=== PATIENT | female | born 1980 | race Caucasian/White ===

== ENCOUNTER → 2018-01-27 | Outpatient (CLI) | payer OTHER ==
[2018-01-27 09:19] LABS: Basophils % (A) 1 %; Eosinophils # (A) 0.2 k/uL (0-0.7); Eosinophils % (A) 3 %; HCT 44.2 % (34.0-46.0); HGB 14.5 gm/dL (11.4-16.0); Lymphocytes # (A) 1.4 k/uL (1.0-4.8); Lymphocytes % (A) 26 %; MCH 28.2 pg (25.0-35.0); MCHC 32.9 g/dL (31.0-37.0); MCV 85.7 fL (80.0-100.0); Mean Platelet Volume 7.8; Monocytes # (A) 0.3 k/uL (0-1.0); Monocytes % (A) 6 %; Neutrophils # (A) 3.5 k/uL (1.3-7.7); Neutrophils % (A) 63 %; Platelet Count 291 k/uL (150-450); RBC 5.16 m/uL (3.80-5.40); RDW 13.2 % (11.5-15.5); WBC 5.6 k/uL (3.8-10.6)
[2018-01-27 09:33] LABS: Anion Gap 11 mmol/L; Blood Urea Nitrogen 18 mg/dL (7-17); Carbon Dioxide 28 mmol/L (22-30); Chloride 103 mmol/L (98-107); Glucose 103 mg/dL (74-99); Potassium 4.5 mmol/L (3.5-5.1); Sodium 142 mmol/L (137-145)
== END | disposition home or self-care (01) ==
LOC: LABPAT 08:30
PROVIDERS: ATTEND Obstetrics & Gynecology Obstetrics
DX: Z01.818 Encounter for other preprocedural examination (principal); Z01.812 Encounter for preprocedural laboratory examination; I10 Essential (primary) hypertension; D25.9 Leiomyoma of uterus, unspecified; N92.0 Excessive and frequent menstruation with regular cycle
CPT/HCPCS: 36415; 80051; 82565; 82947; 84520; 85025; 87086; 93005

== ENCOUNTER 2018-02-06 05:41 | Day surgery (SDC) | payer OTHER ==
--- NOTE | 2018-02-05 09:17 | P.HPOB ---
History of Present Illness H&P Date: 02/05/18 Chief Complaint: menorrhagia, uterine fibroid This is a 37 yo , c/o heavy menstrual bleeding. menses are regular q month with a heavy flow and clots. she also notes moderate dysmenorrhea. she had an ultrasound done revealing large uterine fibroid, nml ovaries b/l. total uterine size is normal at 8cm. she desires definitive treatment with hysterectomy as she is odne with childbearing. given the size of shaila fibroid she woudl likely fail an EA. Review of Systems Constitutional: Reports fatigue Genitourinary: Reports dysmenorrhea, Reports menorrhagia Past Medical History Past Medical History: GERD/Reflux, Hyperlipidemia, Hypertension, Thyroid Disorder Additional Past Medical History / Comment(s): CURRENT: FIBROIDS, HEAVY MENSTURAL FLOW. LOWER PAIN History of Any Multi-Drug Resistant Organisms: None Reported Past Surgical History: Cholecystectomy Past Anesthesia/Blood Transfusion Reactions: No Reported Reaction, Motion Sickness Past Psychological History: No Psychological Hx Reported Smoking Status: Former smoker Past Alcohol Use History: Rare Additional Past Alcohol Use History / Comment(s): 2011 QUIT, SMOKED 10 YRS, 1- 1.5PPD Past Drug Use History: None Reported - Past Family History Sister(s) Family Medical History: CVA/TIA Mother Family Medical History: Cancer Medications and Allergies Home Medications Medication Instructions Recorded Confirmed Type Atorvastatin [Lipitor] 10 mg PO HS 01/29/18 01/29/18 History Levothyroxine Sodium [Synthroid] 50 mcg PO QAM 01/29/18 01/29/18 History Losartan [Cozaar] 50 mg PO HS 01/29/18 01/29/18 History Ranitidine HCl 150 mg PO HS 01/29/18 01/29/18 History Allergies Allergy/AdvReac Type Severity Reaction Status Date / Time bupropion [From Zyban] Allergy Rash/Hives Verified 01/29/18 10:26 Exam Osteopathic Statement: *. No significant issues noted on an osteopathic structural exam other than those noted in the History and Physical/Consult. - OBG Physical Exam Abdomen: bowel sounds normal Vulva: both: normal Vagina: normal without lesion Cervix: normal without lesion Uterus: irregular contour Uterus: normal size Assessment and Plan (1) Menorrhagia Status: Acute Code(s): N92.0 - EXCESSIVE AND FREQUENT MENSTRUATION WITH REGULAR CYCLE SNOMED Code(s): 691358441 (2) Uterine fibroid Status: Acute Code(s): D25.9 - LEIOMYOMA OF UTERUS, UNSPECIFIED SNOMED Code( s): 38065421 Plan: plan RAVH/DC, procedure reviewed with pt and questions answered. risks reviewed with pt including but not limited to infection bleeding damage to bladder bowel or ureteric injury. informed consent is obtained. Time with Patient: Less than 30
[~2018-02-06 05:41] MED LIST: DEXAMETHASONE SOD PHOSPHATE 10 MG/ML 1 ML VIAL IV ONE; MIDAZOLAM 2 MG/2 ML VIAL IV PRN; MORPHINE SULFATE 4 MG/ML SYRINGE IV PRN; SCOPOLAMINE 1.5MG/72HR PATCH TRANSDERM ONE
[2018-02-06] MEDS: LACTATED RINGERS 1,000 ML IV SCH ×5 (06:47→19:49)
[2018-02-06] MEDS ORDERED: LIDOCAINE 1% 20 ML VIAL (10MG/ML) FOR IV START INTRADERMA ONE ×2 (06:48→06:49)
[2018-02-06] MEDS: ONDANSETRON 4 MG/2 ML VIAL IVP ONE ×2 (06:56→19:48)
[2018-02-06] MEDS ORDERED: BUPIVACAINE (PF) 0.25% 30 ML VIAL SQ ONE ×2 (07:23→10:49)
[2018-02-06] MEDS ORDERED: NEOSTIGMINE 1 MG/ML 10 ML VIAL ONE (07:35)
[2018-02-06] MEDS ORDERED: ROCURONIUM BROMIDE 10 MG/ML 10 ML VIAL IV ONE (07:35)
[2018-02-06] MEDS ORDERED: GLYCOPYRROLATE 0.2 MG/ML 2 ML VIAL ONE (07:35)
[2018-02-06] MEDS ORDERED: ACETAMINOPHEN IV (For NPO) 1,000 MG/100 ML VIAL ONE (07:35)
[2018-02-06] MEDS ORDERED: MIDAZOLAM 2 MG/2 ML VIAL ONE (07:35)
[2018-02-06] MEDS ORDERED: PROPOFOL 10 MG/ML 20 ML VIAL IV ONE (07:35)
[2018-02-06] MEDS ORDERED: LIDOCAINE 1% INJ 10MG/ML (20 ML MDV) ONE (07:35)
[2018-02-06] MEDS ORDERED: fentaNYL (PF) 50 MCG/ML 2 ML AMP ONE (07:35)
[2018-02-06] MEDS ORDERED: SUCCINYLCHOLINE CHLORIDE 100 MG/5 ML SYR IV ONE (07:35)
[2018-02-06] MEDS ORDERED: Acetaminophen-Codeine 300-30mg TAB PO PRN ×2 (07:39)
[2018-02-06] MEDS ORDERED: IBUPROFEN 600 MG TAB PO PRN (07:39)
[2018-02-06] MEDS ORDERED: IBUPROFEN IV 800 MG in SODIUM CHLORIDE 0.9% 250 ML IV ONE (07:42)
--- NOTE | 2018-02-06 11:01 | P.OP ---
Date of Procedure: 02/06/18 Preoperative Diagnosis: Uterine fibroids, menorrhagia Postoperative Diagnosis: same Procedure(s) Performed: Robotic cyst vaginal hysterectomy, diagnostic cystoscopy Anesthesia: YESENIAA Surgeon: Camille Barkley Blockers Skiver #1: Richie Verduzco Estimated Blood Loss (ml): 50 IV fluids (ml): 1,700 Urine output (ml): 150 Pathology: other (Uterus, cervix) Condition: stable Disposition: PACU Indications for Procedure: Enlarged uterine fibroids largest measuring greater than 5 cm, menorrhagia Operative Findings: Enlarged fibroid uterus normal ovaries bilaterally Description of Procedure: Informed consent was obtained in the preoperative area and the patient was taken the operating room where general anesthesia was obtained without difficulty by the anesthesia department. She was then prepped and draped in normal sterile fashion in dorsal lithotomy position a Molian catheter was then placed under sterile technique. A weighted speculum was then placed in the posterior vaginal vault the anterior lip the cervix is visualized, and grasped with a single-tooth tenaculum. The endocervical canal was then dilated and a mana.bo uterine manipulator was placed in the endometrial cavity as a means to manipulate the uterus throughout the procedure. All instrument were then removed from the vaginal vault at this point. Attention was then turned to the patient's abdomen where approximately 2 finger breaths above the umbilicus a small skin incision was made. Through this incision a Veress needle was placed once of ears reveals deemed to be in appropriate position of the drop in CO2 pressure with insufflation of CO2 gas CO2 insufflation was allowed to occur. 4 L of gas were used to obtain pneumoperitoneum. At this point additional port sites are placed these are 8mm ports and placed under direct visualization. In the left upper quadrant a 12 mm skin incision was made and a 12 mm trocar and sleeve is placed under direct visualization. Next At this point the da Lacey robot was docked in usual fashion and the operative arms are placed in the right operative arm the monopolar scissors and the left operative arm the bipolar forceps was placed attention was then turned to the patient's uterine ovarian ligament on the left, which was coagulated 2 and transected hemostasis was noted. The broad was then coagulated 2 and transected with good hemostasis the round ligament was then visualized regular 2 and transected the bladder flap from the left was then created using sharp and blunt dissection. The ascending branch of the uterine artery is visualized on the left and coagulated 2 and transected hemostasis was noted attention was then turned to the patient's right utero-ovarian ligament which was visualized coagulated 2 and transected. This continued through the broad towards around which is regular 2 and transected. The bladder flap was then created from the right using sharp and blunt dissection. At this point a Ray-Stefani was placed into the abdomen and the the bladder was then dissected further away from the operating field. The a sitting branch of the uterine artery from the right was then visualized coagulated 2 and transected hemostasis was noted. At this point the only remaining attachment was a vaginal attachment therefore colpotomy incision was made in circumferential fashion. Both bilateral fibroids were then transected one was placed in a bag the uterus and posterior fibroid was delivered through the vaginal opening followed by the other 2 fibroids. Hemostasis was appreciated at this point. The vaginal cuff was then closed with 0 Vicryl in interrupted fashion. Once again hemostasis was noted. Floseal was then placed across the cuff. Attention was then turned to the patient's Molina catheter which was removed without difficulty, clear fluid was noted in the catheter at this point. A cystoscopy was then performed a cystoscopy was placed through the urethra toward the bladder bladder bubble was noted both ureteral orifices were spilling clear yellow urine. Attention then turned to the patient's abdomen and the skin incisions were closed with 4-0 Vicryl in a subarticular fashion Steri-Strips and sterile dressings were applied. Patient tolerated procedure well, all counts WERE correct 2, patient tolerated procedure well and was taken the recovery room awake and in stable condition
[2018-02-06] MEDS ORDERED: ONDANSETRON 4 MG/2 ML VIAL IVP ONE (11:40)
[2018-02-06 12:50] VITALS: BMI 54.6
--- NOTE | 2018-02-06 12:52 | P.PN ---
Subjective Progress Note Date: 02/06/18 Principal diagnosis: POD #0, JULIANNA DC Pt is doing well postoperatively. she is tolerating clear liquids without n/v. davison is draining clear yellow urine, pain is controlled. Objective - Vital Signs Vital signs: Vital Signs Temp 97.1 F L 02/06/18 11:06 Pulse 80 02/06/18 11:30 Resp 16 02/06/18 11:30 BP 134/63 02/06/18 11:30 Pulse Ox 93 L 02/06/18 11:30 Intake & Output 02/05/18 02/06/18 02/06/18 18:59 06:59 18:59 Intake Total 1950 Output Total 200 Balance 1750 Intake: IV 1950 Output: Urine 150 Estimated Blood Loss 50 - Constitutional General appearance: Present: morbidly obese, no acute distress - Gastrointestinal Gastrointestinal Comment(s): incisions c/d/i - Psychiatric Psychiatric: Present: A&O x's 3, appropriate affect Assessment and Plan (1) Menorrhagia Current Visit: Yes Status: Acute Code(s): N92.0 - EXCESSIVE AND FREQUENT MENSTRUATION WITH REGULAR CYCLE SNOMED Code(s): 870517777 (2) Uterine fibroid Current Visit: Yes Status: Acute Code(s): D25.9 - LEIOMYOMA OF UTERUS, UNSPECIFIED SNOMED Code(s): 48264289 (3) S/P hysterectomy Narrative/Plan: doing well post operatively will continue current post op care. increase ambulation and is ok to advance diet as tolerated. davison can be d/c when she is able to ambulate on her own Current Visit: Yes Status: Acute Code(s): Z90.710 - ACQUIRED ABSENCE OF BOTH CERVIX AND UTERUS SNOMED Code(s): 805889612 Time with Patient: Less than 30
[2018-02-06] MEDS: LEVOTHYROXINE 50 MCG TAB PO SCH (19:49)
[2018-02-06] MEDS ORDERED: ATORVASTATIN 10 MG TAB PO SCH (21:00)
[2018-02-07 04:33] VITALS: RESP 14
[2018-02-07] MEDS: LACTATED RINGERS 1,000 ML IV SCH (04:33)
[2018-02-07] MEDS: LEVOTHYROXINE 50 MCG TAB PO SCH (06:01)
--- NOTE | 2018-02-07 09:08 | P.DS ---
Providers Date of admission: 02/06/18 Expected date of discharge: 02/07/18 Attending physician: Camille Barkley Primary care physician: Davian Rousseau - Discharge Diagnosis(es) (1) Menorrhagia Current Visit: Yes Status: Acute (2) Uterine fibroid Current Visit: Yes Status: Acute (3) S/P hysterectomy This is a 37yo female that was admitted on 02/06 for [facility] secondary to large uterine fibroids and menorrhagia. surgery was completed without difficulty, for further details on the surgery please see operative report. postoperatively she did well, davison was d/c last PM, she notes spontaneous void after removal. she is passing flatus and denies pain. no n/v tolerating regular diet. no pain this am. Current Visit: Yes Status: Acute Plan - Discharge Summary Discharge Rx Participant: No New Discharge Prescriptions: No Action Ranitidine HCl 150 mg PO HS Losartan [Cozaar] 50 mg PO HS Levothyroxine Sodium [Synthroid] 50 mcg PO QAM Atorvastatin [Lipitor] 10 mg PO HS Discharge Medication List Atorvastatin [Lipitor] 10 mg PO HS 01/29/18 [History] Levothyroxine Sodium [Synthroid] 50 mcg PO QAM 01/29/18 [History] Losartan [Cozaar] 50 mg PO HS 01/29/18 [History] Ranitidine HCl 150 mg PO HS 01/29/18 [History] Follow up Appointment(s)/Referral(s): aCmille Barkley DO [Doctor of Osteopathic Medicine] - 2 Weeks Patient Instructions/Handouts: Hysterectomy (DC), Laparoscopic Hysterectomy (DC )
[2018-02-07 09:42] LABS: Basophils # (A) 0.1 k/uL (0-0.2); Basophils % (A) 1 %; Eosinophils # (A) 0.1 k/uL (0-0.7); Eosinophils % (A) 1 %; HCT 38.5 % (34.0-46.0); Lymphocytes # (A) 1.9 k/uL (1.0-4.8); Lymphocytes % (A) 16 %; MCH 28.2 pg (25.0-35.0); MCHC 33.7 g/dL (31.0-37.0); MCV 83.7 fL (80.0-100.0); Mean Platelet Volume 7.6; Monocytes # (A) 0.6 k/uL (0-1.0); Monocytes % (A) 5 %; Neutrophils # (A) 8.8 k/uL (1.3-7.7); Neutrophils % (A) 76 %; Platelet Count 310 k/uL (150-450); RDW 13.5 % (11.5-15.5); WBC 11.5 k/uL (3.8-10.6)
[2018-02-07 10:53] VITALS: BP 128/70; PULSE 77; TEMP 98.6
== END 2018-02-07 10:15 | disposition home or self-care (01) ==
LOC: OR 05:41 → 4FBP 10:43 → OR 02-07 10:15
PROVIDERS: ATTEND Obstetrics & Gynecology Obstetrics
DX: D25.1 Intramural leiomyoma of uterus (principal); D25.2 Subserosal leiomyoma of uterus; N87.9 Dysplasia of cervix uteri, unspecified; N72 Inflammatory disease of cervix uteri; N88.8 Other specified noninflammatory disorders of cervix uteri; N80.0 Endometriosis of uterus; K21.9 Gastro-esophageal reflux disease without esophagitis; E78.5 Hyperlipidemia, unspecified; I10 Essential (primary) hypertension; E07.9 Disorder of thyroid, unspecified; Z79.890 Hormone replacement therapy; Z79.899 Other long term (current) drug therapy; Z88.8 Allergy status to other drugs, medicaments and biological substances; Z87.891 Personal history of nicotine dependence
CPT/HCPCS: 81025; 86900; 86901; 85025; 86850; 88307; 58570; C1762; J2250; J1100; J2710; J0690; J2405; J2001; J3010; J0131; J0330; J1741; J2704; 88311

== ENCOUNTER → 2020-06-02 | Outpatient (CLI) | payer OTHER ==
--- NOTE | 2020-06-02 09:34 | MM ---
Reason for exam: screening (asymptomatic). Baseline mammogram. Physical Findings: Nurse did not find any significant physical abnormalities on exam. MG 3D Screening Mammo W/Cad Bilateral CC and MLO view(s) were taken. There are scattered fibroglandular densities. Focal asymmetry outer CC view 7cm from nipple. These results were verbally communicated with the patient and result sheet given to the patient on 06/02/20. ASSESSMENT: Incomplete: need additional imaging evaluation, BI-RAD 0 RECOMMENDATION: Special view mammogram of the right breast.
--- NOTE | 2020-06-02 09:35 | MM ---
Reason for exam: additional evaluation requested from abnormal screening. Physical Findings: Breast exam preformed at baseline screening. MG 3D Work Up W/Cad RT Spot compression CC view(s) were taken of the right breast. There are scattered fibroglandular densities. There is no discrete abnormality including area of concern. Asymmetric right breast density on compression. These results were verbally communicated with the patient and result sheet given to the patient on 06/02/20. ASSESSMENT: Benign, BI-RAD 2 RECOMMENDATION: Return to routine screening mammogram schedule for both breasts. Manage on a clinical basis with regard to pain.
== END | disposition home or self-care (01) ==
LOC: RADMAMWWP 07:25
PROVIDERS: ATTEND Family Medicine
DX: Z12.31 Encounter for screening mammogram for malignant neoplasm of breast (principal); R92.8 Other abnormal and inconclusive findings on diagnostic imaging of breast
CPT/HCPCS: 77061; 77063; 77065; 77067